=== PATIENT | male | born 1980 | race Hispanic/Latino ===

== ENCOUNTER 2018-04-15 12:44 | Emergency (ER) | payer SELFPAY ==
[2018-04-15] MEDS ORDERED: IBUPROFEN 600 MG TABLET ONE (12:56)
[2018-04-15 13:37] LABS: APPEARANCE,URINE Clear (CLEAR); BILIRUBIN,URINE Small (NEGATIVE); COLOR,URINE Dark Yellow (YELLOW); GLUCOSE, URINE (UA) Negative (NEGATIVE); KETONES,URINE 15 mg/dL (NEGATIVE); LEUKOCYTE ESTERASE ,URINE Moderate (NEGATIVE); NITRATE,URINE Negative (NEGATIVE); OCCULT BLOOD,URINE Small (NEGATIVE); PH,URINE 5.5 (5.0-8.0); PROTEIN,URINE POS 1+ (NEGATIVE)
[2018-04-15 14:04] LABS: BACTERIA,URINE Few /HPF (None Seen)
[2018-04-15] MEDS ORDERED: CEFTRIAXONE SODIUM 500 MG VIAL ONE (14:20)
[2018-04-15] MEDS ORDERED: AZITHROMYCIN 250 MG TABLET PO ONE (14:21)
[2018-04-15] MEDS ORDERED: LIDOCAINE HCL-MPF 1% 2ML VIAL ONE (14:21)
== END 2018-04-15 14:48 | disposition home or self-care (01) ==
LOC: EDH 12:44
DX: N45.3 Epididymo-orchitis (principal); N39.0 Urinary tract infection, site not specified
CPT/HCPCS: 76870; 81001; 96372; 99284; J0696; J3490

== ENCOUNTER 2020-01-31 01:32 | Inpatient (IN) | payer SELFPAY ==
[~2020-01-31] VITALS: Ht 170.2 cm; Wt 95.3 kg
[2020-01-31] VITALS (25 sets, daily range): BP systolic 103–172; BP diastolic 47–95
[2020-01-31 02:01] LABS: BASOPHILS % (AUTO) 0.2 % (0.0-5.0); HEMATOCRIT 42.7 % (42-54); LYMPHOCYTES % (AUTO) 8.4 % (21.0-51.0); MEAN CORPUSCULAR HEMOGLOBIN 27.6 pg (27.0-33.0); MEAN CORPUSCULAR HGB CONC 33.7 g/dL (32.0-36.0); MEAN CORPUSCULAR VOLUME 81.8 fL (79-99); MONOCYTES % (AUTO) 12.9 % (3.0-13.0); NEUTROPHILS % (AUTO) 78.1 % (40.0-77.0); PLATELET COUNT (AUTO) 345 K/uL (130-400); RED BLOOD CELL COUNT(AUTO) 5.22 MIL/uL (4.50-6.20); RED CELL DISTRIBUTION WIDTH 13.4 % (11.0-15.5); WHITE BLOOD COUNT (AUTO) 21.2 K/uL (4.8-10.8)
[2020-01-31] MEDS ORDERED: ONDANSETRON HCL 4 MG/2 ML VIAL ONE ×3 (02:03→13:26)
[2020-01-31] MEDS ORDERED: MORPHINE SULFATE 4 MG/1ML SYG ONE (02:04)
[2020-01-31 02:17] LABS: CREATININE 1.2 mg/dL (0.5-1.5); POTASSIUM 3.7 mmol/L (3.5-5.1)
[2020-01-31 02:20] LABS: BILIRUBIN,URINE Negative (NEGATIVE); COLOR,URINE Dark Yellow (YELLOW); GLUCOSE, URINE (UA) Negative (NEGATIVE); KETONES,URINE 15 mg/dL (NEGATIVE); LEUKOCYTE ESTERASE ,URINE Negative (NEGATIVE); NITRATE,URINE Negative (NEGATIVE); OCCULT BLOOD,URINE Trace (NEGATIVE); PROTEIN,URINE POS 2+ mg/dL (NEGATIVE)
[2020-01-31 02:21] LABS: ALBUMIN 4.3 g/dL (3.5-5.0); BILIRUBIN,TOTAL 0.7 mg/dL (0.2-1.0); TOTAL PROTEIN, SERUM 9.3 g/dL (6.0-8.3)
[2020-01-31 02:22] LABS: APPEARANCE,URINE SLIGHTLY CLOUDY (CLEAR)
[2020-01-31 02:28] LABS: AMORPHOUS SEDIMENT,UR Rare /LPF (None Seen); AMPHET/METH SCREEN,URINE NEGATIVE (NEGATIVE); BACTERIA,URINE None Seen /HPF (None Seen); BARBITURATE SCREEN, URINE NEGATIVE (NEGATIVE); BENZODIAZEPINES SCREEN,URINE NEGATIVE (NEGATIVE); CANNABINOID SCREEN,URINE POSITIVE (NEGATIVE); COCAINE SCREEN,URINE NEGATIVE (NEGATIVE); MUCUS,URINE Rare LPF (None Seen); OPIATE SCREEN,URINE POSITIVE (NEGATIVE); PHENCYCLIDINE SCREEN,URINE NEGATIVE (NEGATIVE); RBC,URINE 0-1 /HPF (0-1); SQUAMOUS EPITHELIAL CELL,UR Rare /HPF (0-2); WBC,URINE None Seen /HPF (0-1)
[2020-01-31] MEDS ORDERED: ZOSYN 3.375GM+NS 50ML 50 ML IV ONE (02:54)
[2020-01-31] MEDS ORDERED: NITROGLYCERIN 0.4 MG SL TAB SL PRN (05:45)
[2020-01-31] MEDS ORDERED: ACETAMINOPHEN 325 MG TAB PO PRN ×2 (05:45)
[2020-01-31] MEDS ORDERED: LIDOCAINE HCL 2% VISCOUS 30 ML, MAG HYDROX/AL HYDROX/SIMETH 30 ML, BELLADONNA-PHENOBARB... PO PRN ×3 (05:45)
[2020-01-31] MEDS: SODIUM CHLORIDE 0.9% 1000ML 1,000 ML IV SCH ×2 (05:45→15:45)
[2020-01-31] MEDS ORDERED: MORPHINE SULFATE 2 MG/ML 1ML SYG IV PRN (05:45)
[2020-01-31] MEDS ORDERED: ZOLPIDEM TARTRATE 5 MG TAB PO PRN (05:45)
[2020-01-31] MEDS ORDERED: ONDANSETRON HCL 4 MG/2 ML VIAL IV PRN (05:45)
[2020-01-31] MEDS ORDERED: LACTULOSE 20 GM/30 ML UDCUP PO PRN (05:45)
[2020-01-31] MEDS ORDERED: HYDRALAZINE HCL 20 MG/ML VIAL IV PRN (05:45)
[2020-01-31 06:33] LABS: % IRON SATURATION 6.3 % (30-44)
[2020-01-31 06:35] LABS: CHOLESTEROL 243 mg/dL (<200); HDL CHOLESTEROL 129 mg/dL (29-71); LDL DIRECT 139 mg/dL (0-99); TRIGLYCERIDES 71 mg/dL (30-200)
[2020-01-31 06:36] LABS: HEMOGLOBIN A1C 5.9 % (4.0-6.0)
[2020-01-31] MEDS ORDERED: MORPHINE SULFATE 2 MG/ML 1ML SYG ONE (07:40)
[2020-01-31] MEDS: FAMOTIDINE/PF 20 MG/2 ML VIAL IV SCH ×2 (09:00→20:28)
[2020-01-31] MEDS: HYDROMORPHONE HCL 2 MG/ML VIAL IVP PRN (12:13)
[2020-01-31] MEDS: ZOSYN 3.375GM+NS 50ML 50 ML IV SCH ×2 (12:14→20:29)
--- NOTE | 2020-01-31 12:44 | NUR ---
CM NOTE/IA MET WITH PATIENT IN ROOM AT BEDSIDE. PER PATIENT LIVES WITH SPOUSE AND THEIR 2 MINOR CHILDREN, INDEPENDENT WITH ADLS, NO USE OF DME, NO PROVIDER OR HOME HEALTH, AND FEELS SAFE TO RETURN HOME ONCE DISCHARGED. PENDING SELF PAY PACKET, PATIENT WITH ABDOMINAL PAIN ABOUT TO RECEIVE IV PAIN MEDICATION. CM TO FOLLOW UP. Addendum: 01/31/20 at 1246 by JOEY BARBOSA RN CM Amended: Links added.
[2020-01-31] MEDS ORDERED: DEXAMETHASONE SOD PHOSPHATE 10MG/ML 1ML VIAL ONE (13:25)
[2020-01-31] MEDS ORDERED: SUCCINYLCHOLINE CHLORIDE 20 MG/ML 10 ML VIAL ONE (13:25)
[2020-01-31] MEDS ORDERED: LIDOCAINE PF 2% 5ML ABBOJECT ONE (13:25)
[2020-01-31] MEDS ORDERED: NEOSTIGMINE 5MG/5ML SYR IV ONE (13:26)
[2020-01-31] MEDS ORDERED: MIDAZOLAM HCL 1 MG/ML 2ML VIAL ONE (13:26)
[2020-01-31] MEDS ORDERED: GLYCOPYRROLATE 1 MG/5 ML SYRINGE ONE (13:26)
[2020-01-31] MEDS ORDERED: LACTATED RINGERS 1000ML 1,000 ML IV ONE (13:26)
[2020-01-31] MEDS ORDERED: PROPOFOL 10 MG/ML 20ML VIAL IV ONE (13:27)
[2020-01-31] MEDS ORDERED: ROCURONIUM 10MG/1ML SYR 10 MG/ML ML ONE (13:27)
[2020-01-31] MEDS ORDERED: FENTANYL CITRATE PF 50 MCG/1 ML 2ML VIAL ONE (13:27)
[2020-01-31] MEDS ORDERED: BUPIVACAINE/PF 0.5% 30ML VIAL ONE (13:50)
[2020-01-31] MEDS ORDERED: DURAMORPH PF1 MG/ML 10ML AMP IV ONE (14:04)
[2020-01-31] MEDS ORDERED: MEPERIDINE-PF 25 MG/ML SYG ONE (14:33)
[2020-01-31] MEDS ORDERED: KETOROLAC TROMETHAMINE 30MG/ML ONE (14:34)
[2020-02-01] MEDS: HYDROMORPHONE HCL 2 MG/ML VIAL IVP PRN ×3 (00:41→20:50)
[2020-02-01 03:33] VITALS: BP 127/82
[2020-02-01 05:31] LABS: BASOPHILS % (AUTO) 0.1 % (0.0-5.0); HEMATOCRIT 37.7 % (42-54); MEAN CORPUSCULAR HEMOGLOBIN 27.1 pg (27.0-33.0); MEAN CORPUSCULAR HGB CONC 32.4 g/dL (32.0-36.0); MEAN CORPUSCULAR VOLUME 83.8 fL (79-99); MONOCYTES % (AUTO) 13.3 % (3.0-13.0); NEUTROPHILS % (AUTO) 79.2 % (40.0-77.0); PLATELET COUNT (AUTO) 298 K/uL (130-400); RED CELL DISTRIBUTION WIDTH 13.7 % (11.0-15.5); WHITE BLOOD COUNT (AUTO) 17.6 K/uL (4.8-10.8)
[2020-02-01] MEDS: ZOSYN 3.375GM+NS 50ML 50 ML IV SCH ×3 (05:44→20:49)
[2020-02-01 06:20] LABS: BILIRUBIN,TOTAL 0.8 mg/dL (0.2-1.0); CREATININE 1.3 mg/dL (0.5-1.5); POTASSIUM 4.2 mmol/L (3.5-5.1); TOTAL PROTEIN, SERUM 7.4 g/dL (6.0-8.3)
[2020-02-01] MEDS: SODIUM CHLORIDE 0.9% 1000ML 1,000 ML IV SCH ×2 (06:40→11:45)
[2020-02-01 08:29] VITALS: BP 129/66
[2020-02-01] MEDS: FAMOTIDINE/PF 20 MG/2 ML VIAL IV SCH ×2 (10:02→20:49)
[2020-02-01] MEDS ORDERED: HYDROMORPHONE HCL 0.5 MG/0.5 ML ML ONE ×2 (11:12→15:37)
[2020-02-01 12:02] VITALS: BP 139/87
[2020-02-01 16:22] VITALS: BP 165/82
--- NOTE | 2020-02-01 16:55 | NUR ---
ADVISED BY NURSE IMELDA THAT PATIENT NEEDS WORK EXCUSE ADVISED BY RN THAT MD STATED ANTICIAPTE 5 MORE DAYS OF ABX. PROVIDE PATIENT WITH PAPER STATING HERE [facility], NO DC ORDER, ANTICIPATE LOS X 5 MORE DAYS.
[2020-02-01 20:42] VITALS: BP 140/89
[2020-02-01 23:07] VITALS: BP 106/57
[2020-02-02] VITALS (7 sets, daily range): BP systolic 123–137; BP diastolic 65–80
[2020-02-02] MEDS: HYDROMORPHONE HCL 2 MG/ML VIAL IVP PRN ×3 (03:01→19:49)
[2020-02-02 05:37] LABS: BASOPHILS % (AUTO) 0.2 % (0.0-5.0); EOSINOPHILS % (AUTO) 0.3 % (0.0-8.0); HEMATOCRIT 38.3 % (42-54); MEAN CORPUSCULAR HEMOGLOBIN 26.8 pg (27.0-33.0); MEAN CORPUSCULAR HGB CONC 31.9 g/dL (32.0-36.0); NEUTROPHILS % (AUTO) 78.1 % (40.0-77.0); PLATELET COUNT (AUTO) 315 K/uL (130-400); RED BLOOD CELL COUNT(AUTO) 4.56 MIL/uL (4.50-6.20); RED CELL DISTRIBUTION WIDTH 13.7 % (11.0-15.5); WHITE BLOOD COUNT (AUTO) 13.4 K/uL (4.8-10.8)
[2020-02-02 05:49] LABS: ALBUMIN 2.7 g/dL (3.5-5.0); BILIRUBIN,TOTAL 0.6 mg/dL (0.2-1.0); CREATININE 1.1 mg/dL (0.5-1.5); POTASSIUM 3.6 mmol/L (3.5-5.1); TOTAL PROTEIN, SERUM 7.2 g/dL (6.0-8.3)
[2020-02-02] MEDS: ZOSYN 3.375GM+NS 50ML 50 ML IV SCH ×3 (06:06→19:12)
[2020-02-02] MEDS: FAMOTIDINE/PF 20 MG/2 ML VIAL IV SCH ×2 (09:59→19:13)
[2020-02-02] MEDS: SODIUM CHLORIDE 0.9% 1000ML 1,000 ML IV SCH ×3 (10:13→18:31)
--- NOTE | 2020-02-02 14:45 | NUR ---
GUSTAVO Note-GUSTAVO met with pt. who is awake, alert, oriented and cooperative. Pt. reported that he is and resides at home w/spouse and two children ages 8y & 2y. Pt. is not employed outside the home and spouse is employed with [employer]. Pt. denies any history of depression, anxiety or other mental illness. Pt. denies any thoughts of harm to self or others. Pt. denies any use of etoh, tobacco, marijuana or other illicit substances. Pt. reports independent prior to admission and plan is to return home post discharge; pt's spouse will provide transportation home. [facility] assisting with finances. Pt. voiced no needs or concerns. Addendum: 02/02/20 at 1608 by MARIA FERNANDA BARBOSA Amended: Links added.
[2020-02-03 03:46] VITALS: BP 150/70
[2020-02-03] MEDS: SODIUM CHLORIDE 0.9% 1000ML 1,000 ML IV SCH ×2 (05:43→14:01)
[2020-02-03] MEDS: ZOSYN 3.375GM+NS 50ML 50 ML IV SCH ×3 (05:43→20:23)
[2020-02-03] MEDS: HYDROMORPHONE HCL 2 MG/ML VIAL IVP PRN ×2 (05:44→20:24)
[2020-02-03 06:22] LABS: BASOPHILS % (AUTO) 0.4 % (0.0-5.0); EOSINOPHILS % (AUTO) 3.5 % (0.0-8.0); HEMATOCRIT 35.1 % (42-54); LYMPHOCYTES % (AUTO) 14.6 % (21.0-51.0); MEAN CORPUSCULAR HEMOGLOBIN 27.1 pg (27.0-33.0); MEAN CORPUSCULAR HGB CONC 32.5 g/dL (32.0-36.0); MEAN CORPUSCULAR VOLUME 83.4 fL (79-99); MONOCYTES % (AUTO) 14.2 % (3.0-13.0); NEUTROPHILS % (AUTO) 66.8 % (40.0-77.0); PLATELET COUNT (AUTO) 324 K/uL (130-400); RED BLOOD CELL COUNT(AUTO) 4.21 MIL/uL (4.50-6.20); RED CELL DISTRIBUTION WIDTH 13.4 % (11.0-15.5)
[2020-02-03 06:36] LABS: CREATININE 1.2 mg/dL (0.5-1.5); POTASSIUM 3.4 mmol/L (3.5-5.1)
[2020-02-03 08:00] VITALS: BP 116/71
[2020-02-03] MEDS: FAMOTIDINE/PF 20 MG/2 ML VIAL IV SCH ×2 (09:08→20:23)
[2020-02-03 12:00] VITALS: BP 121/72
[2020-02-03] MEDS ORDERED: LIDOCAINE HCL-MPF 1% 2ML VIAL IV PRN (14:45)
[2020-02-03] MEDS ORDERED: POTASSIUM CHLORIDE 10% ELIXIR 20 MEQ/15 ML UDCUP PO PRN (14:45)
[2020-02-03] MEDS ORDERED: POTASSIUM CHLORIDE 20 MEQ ERTAB PO PRN (14:45)
[2020-02-03] MEDS ORDERED: POTASSIUM CHLORIDE 20MEQ/100ML 100 ML IV PRN (14:45)
[2020-02-03 16:00] VITALS: BP 137/73
[2020-02-03 20:01] VITALS: BP 145/80
[2020-02-03 23:44] VITALS: BP 143/89
[2020-02-04] MEDS: SODIUM CHLORIDE 0.9% 1000ML 1,000 ML IV SCH (03:33)
[2020-02-04 04:09] VITALS: BP 126/65
[2020-02-04] MEDS: ZOSYN 3.375GM+NS 50ML 50 ML IV SCH (05:47)
[2020-02-04 06:53] LABS: BASOPHILS % (AUTO) 0.5 % (0.0-5.0); HEMATOCRIT 37.7 % (42-54); LYMPHOCYTES % (AUTO) 16.4 % (21.0-51.0); MEAN CORPUSCULAR HEMOGLOBIN 27.1 pg (27.0-33.0); MEAN CORPUSCULAR HGB CONC 32.4 g/dL (32.0-36.0); MEAN CORPUSCULAR VOLUME 83.8 fL (79-99); MONOCYTES % (AUTO) 12.6 % (3.0-13.0); NEUTROPHILS % (AUTO) 65.9 % (40.0-77.0); PLATELET COUNT (AUTO) 372 K/uL (130-400); RED CELL DISTRIBUTION WIDTH 13.4 % (11.0-15.5); WHITE BLOOD COUNT (AUTO) 10.5 K/uL (4.8-10.8)
[2020-02-04 07:11] LABS: CREATININE 1.1 mg/dL (0.5-1.5); POTASSIUM 3.8 mmol/L (3.5-5.1)
[2020-02-04 08:00] VITALS: BP 119/55
[2020-02-04] MEDS: FAMOTIDINE/PF 20 MG/2 ML VIAL IV SCH (09:06)
[2020-02-04 11:50] VITALS: BP 121/60
--- NOTE | 2020-02-04 13:46 | NUR ---
shannan drain shannan drain discontinued with no issues....pt tolerated removal...applied gauze and medipore tape over the wound...
--- NOTE | 2020-02-04 15:25 | NUR ---
discharge patient has been discharged...explained medications prescribed to him and provided prescription from physician. provided education about wound care...stressed that he seek medical care if he develops fever, chills or severe abd pain...pt will follow up with dr. wright next week and pcp...answered all questions and concerns...remote sensing research scientist took patient to exit doors via wheelchair..patient accompanied by spouse.
--- NOTE | 2020-02-04 15:27 | NUR ---
iv iv discontinued prior to d/c
== END 2020-02-04 15:30 | disposition home or self-care (01) | DRG 853 ==
LOC: EDH 01:32 → EDHIP 01:33 → 4DH 09:34 → 4AH 18:56
PROVIDERS: ADMIT Internal Medicine; ATTEND Internal Medicine
PROC: 0DTJ4ZZ Resection of Appendix, Percutaneous Endoscopic Approach (ICD-10-PCS; principal; 2020-01-31 14:10)
DX: A41.9 Sepsis, unspecified organism (principal); K35.32 Acute appendicitis with perforation, localized peritonitis, and gangrene, without abscess; I10 Essential (primary) hypertension
CPT/HCPCS: 36415; 74176; 80048; 80053; 80061; 80305; 81001; 82948; 83036; 83540; 83550; 83690; 84145; 85025; 87070; 87076; 87077; 87186; G0378; J0330; J1100; J1170; J1885; J2001; J2175; J2250; J2270; J2274; J2405; J2543; J2704; J2710; J3010; J3490; J7030; J7120

== ENCOUNTER 2023-01-21 10:02 | Emergency (ER) | payer OTHER ==
[~2023-01-21] VITALS: Ht 170.2 cm; Wt 63.5 kg
[2023-01-21 11:23] LABS: RAPID GROUP A STREP negative (NEGATIVE)
[2023-01-21 11:26] LABS: SARS-CoV-2, RNA, NAAT NEGATIVE SARS CoV-2 (NEGATIVE)
[2023-01-21 11:41] LABS: INFLUENZA TYPE A Negative For Type A (NEGATIVE); INFLUENZA TYPE B Negative For Type B (NEGATIVE)
[2023-01-21] MEDS ORDERED: ACETAMINOPHEN 500 MG TABLET PO ONE (12:30)
[2023-01-21] MEDS ORDERED: 0.9%NACL 1000ML 1,000 ML IV ONE (12:30)
[2023-01-21] MEDS ORDERED: KETOROLAC 30MG VIAL (30MG/ML) IVP ONE (12:30)
[2023-01-21 12:45] LABS: BASOPHILS # (AUTO) 0.06 K/uL (0.00-0.20); BASOPHILS % (AUTO) 0.3 % (0.0-5.0); CREATININE 1.3 mg/dL (0.5-1.5); EOSINOPHILS # (AUTO) 0.03 K/uL (0.00-0.70); EOSINOPHILS % (AUTO) 0.2 % (0.0-8.0); HEMATOCRIT 40.9 % (42-54); IMMATURE GRANULOCYTE ABSOLUTE 0.15 K/uL (0-1); LYMPHOCYTES # (AUTO) 2.9 K/uL (1.0-4.8); LYMPHOCYTES % (AUTO) 16.4 % (21.0-51.0); MEAN CORPUSCULAR HEMOGLOBIN 27.2 pg (27.0-33.0); MEAN CORPUSCULAR HGB CONC 32.8 g/dL (32.0-36.0); MEAN CORPUSCULAR VOLUME 83.1 fL (79-99); MONOCYTES # (AUTO) 2.3 K/uL (0.1-1.0); MONOCYTES % (AUTO) 13.1 % (3.0-13.0); NEUTROPHILS % (AUTO) 69.1 % (40.0-77.0); PLATELET COUNT (AUTO) 397 K/uL (130-400); POTASSIUM 3.4 mmol/L (3.5-5.1); RED BLOOD CELL COUNT(AUTO) 4.92 MIL/uL (4.50-6.20); RED CELL DISTRIBUTION WIDTH 13.5 % (11.0-15.5); WHITE BLOOD COUNT (AUTO) 17.4 K/uL (4.8-10.8)
[2023-01-21 12:51] LABS: ALBUMIN 3.6 g/dL (3.5-5.0); BILIRUBIN,TOTAL 0.8 mg/dL (0.2-1.0); TOTAL PROTEIN, SERUM 9.5 g/dL (6.0-8.3)
[2023-01-21] MEDS ORDERED: CEFTRIAXONE 1G VIAL IVPB ONE (13:00)
[2023-01-21 13:59] LABS: ERYTHROCYTE SEDIMENTATION RATE 97 MM/HR (0-15)
[2023-01-21] MEDS ORDERED: CLINDAMYCIN IVPB 900MG/50ML 50 ML IV STA (21:33)
[2023-01-21] MEDS ORDERED: DEXAMETHASONE SOD PHOSPHATE 4 MG/ML 1ML VIAL IVP ONE (22:00)
[2023-01-21 22:16] VITALS: BP 128/76; PULSE 79; RESP 16; O2SAT 98
== END 2023-01-22 00:16 | disposition short-term general hospital (02) ==
LOC: EDH 10:02
DX: J36 Peritonsillar abscess (principal); D72.829 Elevated white blood cell count, unspecified; K21.9 Gastro-esophageal reflux disease without esophagitis; Z20.822 Contact with and (suspected) exposure to COVID-19; Z90.49 Acquired absence of other specified parts of digestive tract
CPT/HCPCS: 99285; 96374; 70490; 96375 ×2; 87635; 96361; 80053; 85025; 85651; 87040 ×2; 87880; 86308; 87804 ×2; 83605; 36415; J1100; C9803; J7030; J0696; J1885; J3490